=== PATIENT | male | born 1990 | race Caucasian/White ===

== ENCOUNTER 2022-02-08 19:16 | Emergency (ER) | payer OTHER ==
[~2022-02-08] VITALS: Ht 177.8 cm; Wt 90.7 kg
[2022-02-08 21:17] VITALS: BP 137/78
--- NOTE | 2022-02-08 21:28 | NUR ---
Barb alvares in ED - 02/08/22 at 2145 by JUDE PT TAKEN TO RADIOLOGY VIA W/C
--- NOTE | 2022-02-08 21:28 | NUR ---
DEV MANAGER AT PT'S BEDSIDE
[2022-02-08] MEDS ORDERED: CYCLOBENZAPRINE 10 MG TABLET PO ONE (21:30)
[2022-02-08] MEDS ORDERED: KETOROLAC TROMETHAMINE INJ 60 MG/2 ML VIAL IM ONE (21:30)
[2022-02-08] MEDS ORDERED: ACETAMINOPHEN 325 MG TABLET PO ONE (21:30)
[2022-02-08] MEDS ORDERED: KETOROLAC TROMETHAMINE INJ 30 MG/ML VIAL ONE (21:33)
[2022-02-08] MEDS ORDERED: ACETAMINOPHEN ES 500 MG TABLET ONE (21:34)
[2022-02-08] MEDS ORDERED: CYCLOBENZAPRINE 10 MG TABLET ONE (21:34)
[2022-02-08] MEDS ORDERED: NAPR-1009 PO (22:11)
[2022-02-08] MEDS ORDERED: CYCL10TA9 PO (22:11)
--- NOTE | 2022-02-08 22:19 | NUR ---
Patient discharged to home in stable condition. RX Written and verbal after care instructions given. Patient verbalizes understanding of instruction. D/C VIA W/C
== END 2022-02-09 00:47 | disposition home or self-care (01) ==
LOC: ER 19:22
DX: S39.012A Strain of muscle, fascia and tendon of lower back, initial encounter (principal); S30.1XXA Contusion of abdominal wall, initial encounter; V89.2XXA Person injured in unspecified motor-vehicle accident, traffic, initial encounter; Y93.89 Activity, other specified; Y92.89 Other specified places as the place of occurrence of the external cause; Y99.8 Other external cause status
CPT/HCPCS: 99283; 96372; 72110; J1885